=== PATIENT | male | born 1965 ===

== ENCOUNTER 2018-08-03 06:33 | Day surgery (SDC) | payer BC, OTHER ==
[~2018-08-03] VITALS: Ht 182.9 cm; Wt 88.1 kg
[~2018-08-03 06:33] MED LIST: ASCO500 PO; Coq-1030 MG PO; Fish Oil 1,0001 EAC3 PO; MAGOXI400 PO; MILK THISTLE175 MG PO; Multivitamin1 EAC1 PO; OLIVE LEAF EXT250 MG PO; [UNRECOGNIZED DRUG - OTHER] PO
== END 2018-08-03 09:12 | disposition home or self-care (01) ==
LOC: ORSCSDS 06:33
PROVIDERS: Internal Medicine Gastroenterology
PROC: 3E0H8GC Introduction of Other Therapeutic Substance into Lower GI, Via Natural or Artificial Opening Endoscopic (ICD-10-PCS; principal; 2018-08-03 08:00)
PROC: 0DBN8ZX Excision of Sigmoid Colon, Via Natural or Artificial Opening Endoscopic, Diagnostic (ICD-10-PCS; principal; 2018-08-03 08:00)
DX: D12.5 Benign neoplasm of sigmoid colon (principal)
CPT/HCPCS: 88305; J0461; J1980; J2405; J2704; J7120

== ENCOUNTER 2022-04-21 07:19 | Day surgery (SDC) | payer BC, OTHER ==
[~2022-04-21] VITALS: Ht 182.9 cm; Wt 81.6 kg
[2022-04-21] MEDS ORDERED: ERGO400 (07:53)
[2022-04-21] MEDS ORDERED: MIRALAX17 GM (07:54)
[2022-04-21] MEDS ORDERED: TOCO1000 (07:59)
== END 2022-04-21 10:15 | disposition home or self-care (01) ==
LOC: ORSCSDS 07:19
PROVIDERS: Student in an Organized Health Care Education/Training Program
PROC: 0DBK8ZX Excision of Ascending Colon, Via Natural or Artificial Opening Endoscopic, Diagnostic (ICD-10-PCS; principal; 2022-04-21 08:45)
DX: Z12.11 Encounter for screening for malignant neoplasm of colon (principal); Z86.010 Personal history of colon polyps; D12.2 Benign neoplasm of ascending colon
CPT/HCPCS: 88305; J2704; J7120

== ENCOUNTER 2022-11-06 08:33 | Day surgery (SDC) | payer BC, OTHER ==
[~2022-11-06] VITALS: Ht 185.4 cm; Wt 82.8 kg
[~2022-11-06 08:33] MED LIST changes: +ERGO400; +MIRALAX17 GM; +TOCO1000
[2022-11-06 10:57] VITALS: BP 119/71
== END 2022-11-06 10:58 | disposition home or self-care (01) ==
LOC: ORSCSDS 08:33
PROVIDERS: Specialist
PROC: 0DBQ8ZX Excision of Anus, Via Natural or Artificial Opening Endoscopic, Diagnostic (ICD-10-PCS; principal; 2022-11-06 10:00)
DX: Z12.11 Encounter for screening for malignant neoplasm of colon (principal); Z86.010 Personal history of colon polyps; K57.30 Diverticulosis of large intestine without perforation or abscess without bleeding
CPT/HCPCS: 88305; J2704; J7120

== ENCOUNTER 2025-01-16 12:11 | Day surgery (SDC) | payer BC ==
[~2025-01-16] VITALS: Ht 182.9 cm; Wt 83.9 kg
[~2025-01-16 12:11] MED LIST changes: +Glycopyrrolate 0.2 MG/ML 1MLVIAL ONE; +Ondansetron HCl 2 MG / ML 2ML Vial ONE; +ePHEDrine Sulfate 50 MG/ML 1ML Injection ONE
[2025-01-16 14:48] VITALS: BP 113/78
== END 2025-01-16 14:47 | disposition home or self-care (01) ==
LOC: ORSCSDS 12:11
PROVIDERS: Specialist
PROC: 0DJD8ZZ Inspection of Lower Intestinal Tract, Via Natural or Artificial Opening Endoscopic (ICD-10-PCS; principal; 2025-01-16 14:15)
DX: Z12.11 Encounter for screening for malignant neoplasm of colon (principal); Z86.0101 Personal history of adenomatous and serrated colon polyps; K64.8 Other hemorrhoids; K57.30 Diverticulosis of large intestine without perforation or abscess without bleeding
CPT/HCPCS: J0461; J2003; J2405; J2704; J7120